=== PATIENT | female | born 1935 | race Caucasian/White ===

== ENCOUNTER 2016-12-07 01:22 | Emergency (ER) | payer OTHER, BC ==
[2016-12-07] MEDS ORDERED: Sodium Chloride 0.9% 1,000 ML PRIMARY IV ONE (01:34)
[2016-12-07] MEDS ORDERED: ASPIRIN 81 MG (BABY) CHEWABLE TABLET PO ONE (01:34)
[2016-12-07] MEDS ORDERED: NORMAL SALINE 10 ML SYRINGE FLUSH IVP PRN (01:34)
--- NOTE | 2016-12-07 01:37 | EKG ---
[address] [place] [address] Measurements Intervals [place] Rate: 87 P: 59 MO: 150 QRS: 35 QRSD: 77 T: 83 QT: 351 QTc: 395 Interpretive Statements SINUS RHYTHM POSSIBLE LEFT ATRIAL ENLARGEMENT [-0.1mV P WAVE IN V1/V2] Compared to ECG 01/27/2016 09:34:21 Sinus bradycardia no longer present Myocardial infarct finding no longer present Electronically Signed On 12-07-16 08:35:09 MDT by Denzel Huerta MD [email or web address]
[2016-12-07 01:46] LABS: BASOPHILS # (AUTO) 0.04 10*3/UL; BASOPHILS % (AUTO) 0.6 % (0-1); EOSINOPHILS # (AUTO) 0.39 10*3/UL; EOSINOPHILS % (AUTO) 5.6 % (0-8); HEMATOCRIT 42.5 % (37.0-47.0); MEAN CORPUSCULAR HEMOGLOBIN 30.6 PG (27-31); MEAN CORPUSCULAR HGB CONC 32.9 g/dL (33-37); MEAN CORPUSCULAR VOLUME 92.8 FL (81-99); MEAN PLATELET VOLUME 10.1 FL (7.4-12.2); MONOCYTES # (AUTO) 0.97 10*3/UL (0.3-0.8); MONOCYTES % (AUTO) 13.9 % (5-15); NEUTROPHILS # (AUTO) 3.47 10*3/UL; NEUTROPHILS % (AUTO) 49.7 % (50-80); RED BLOOD COUNT 4.58 10^6/uL (4.20-5.40)
[2016-12-07 01:47] LABS: PLATELET MORPHOLOGY COMMENT NORMAL MORPHOLOGY (NORM); RBC MORPHOLOGY COMMENT NORMAL MORPHOLOGY (NORM); WBC MORPHOLOGY COMMENT NORMAL MORPHOLOGY (NORM)
[2016-12-07 01:52] LABS: BUN/CREATININE RATIO 26.25 (6-20); CALCIUM 9.3 mg/dL (8.7-10.7); SERUM ALBUMIN 3.8 g/dL (3.5-4.8)
[2016-12-07 01:59] VITALS: RESP 20
[2016-12-07 02:06] LABS: CREATINE KINASE MB 1.75 NG/ML (0.00-5.00); TROPONIN I 0.015 ng/mL (< 0.040)
--- NOTE | 2016-12-07 06:41 | PDOC ---
Palpitations HPI - General Chief Complaint: General Medical Stated Complaint: FEELS LIKE HEART IS RACING Date Seen by Provider: 12/07/16 Time Seen by Provider: 01:25 Source: POSITIVE: Patient, Spouse Exam Limitations: POSITIVE: No limitations Nurse's Notes Reviewed & Considered: Yes Nurse's Notes Reviewed & Considered: Yes - History of Present Illness Initial Comments: The patient is a 81-year-old female who presents to the emergency room with her . 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 Patient states she felt somewhat dizzy at the time. She had no chest pain. No syncope. No GI or symptoms. No focal neurologic symptoms. Patient states that she had surgery for a "brain aneurysm "8 or 9 years ago. History of hypertension for which she takes losartan. She states she is on no other medication. Body Location Affected: REPORTS: Other ("Rapid heart rate") Timing: REPORTS: Abrupt Duration: Other (Less than 30 minutes) Severity: Moderate Quality: REPORTS: Other (Patient denies any pain anywhere) Gone now, lasted (minutes):: 10 Context: REPORTS: Onset w/ Sleep Associated Symptoms: REPORTS: Light-Headedness. DENIES: Fever, Chills, Sweating , Chest Pain, Chest Discomfort, Precordial Chest Pain, Mid-Chest Pain, Neck Pain , Back Pain, Headache, Hurts to Breathe, Shortness of Breath, Anxiety, Tingling in Hands, Tingling in Face, Muscle Spasms in Hands, Muscle Spasms in Feet, Other Modifying Factors: improves with: None Reported Similar Symptoms Previously: No Recently seen/treated/hospitalized: No Any Prior Injuries Related to Current Complaint?: No - Patient Home Medications Home Medications: Home Medications Ascorbic Acid [Vitamin C] 500 mg PO QD 02/28/11 Multivitamin [Daily Vitamin] 1 tab ORAL QD tab 02/28/11 Vitamin D-3 2,000 unit PO QD 02/28/11 [place]-3 Fatty Acids [Fish Oil] 500 cap PO 3XW cap 12/24/12 Losartan [Cozaar] 25 mg PO DAILY 01/27/16 - Patient Allergies Allergies/Adverse Reactions: Allergies Allergy/AdvReac Type Severity Reaction Status Date / Time sumatriptan AdvReac Intermediate sedation Verified 12/07/16 01:28 shrimp Allergy Severe hives and Uncoded 12/07/16 01:28 throat swells shut Past Medical History - heen HEENT History: Denies History Additional HEENT History: SEASONAL ALLERGIES Cardiovascular History: Hypertension Respiratory History: Denies History Gastrointestinal History: Denies History Genitourinary History: Denies History Additional Genitourinary History: ELEVATED BUN Endocrine History: Denies History Musculoskeletal History: Arthritis, Back Pain Prosthesis or Implant: Yes (CLIP IN HEAD, RIGHT SHOULDER) Neurological History: Other (please comment) Additional Neurological History: CEREBRAL ANEURYSM OF RIGHT OPHTHTALMIC ARTERY 2006/ 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 Blood Disorders: Denies History Psychiatric History: Denies History History of Sexually Transmitted Diseases: No Female Reproductive History: Denies History Obstetrical History: Denies History Cancer History: Denies History In Past Year Been Physically Harmed or Verbally Threatened: No History of MDRO: No History of Other Communicable Diseases: No Tobacco Use: Never Smoker Alcohol Use: Rarely Substance Use Type: None Previous Surgical History: Yes Type / Date of Surgery: APPY/ FACE LIFT/ TONSILLETOMY/ CEREBRAL ANEURYSMECTOMY/ OCCIPITAL STIMULATOR AND REMOVAL OF (USED FOR HEADACHES) DEVICE DID NOT WORK/ RIGHT ROTATOR CUFF REPAIR/ BREAST AUGMENTATION Anesthesia Reactions: No Malignant Hyperthermia: No Significant Family History: Hypertension Past Medical History Reviewed: Reviewed - No Changes ROS - Limitations ROS Limitations: No Limitations Constitution: REPORTS: Denies Symptoms Cardiovascular: REPORTS: Heart Racing Respiratory: REPORTS: Denies Resp Symptoms Neurological: REPORTS: Denies Neuro Symptoms Gastrointestinal: REPORTS: Denies GI Symptoms Endocrine: REPORTS: Denies Symptoms Musculoskeletal: REPORTS: Denies MS Symptoms Genitourinary: REPORTS: Denies Symptoms Eyes: REPORTS: Denies Symptoms ENT: REPORTS: Denies Symptoms Skin: REPORTS: Denies Skin Symptoms Lympathic: REPORTS: Denies Lympathic Symptoms Immunologic: POSITIVE: Denies Symptoms Psychiatric: POSITIVE: Denies Psych Symptoms Palpitations Exam - General Appearance General Appearance: REPORTS: Alert, Cooperative, No Acute Distress, No Evidence of Trauma - HEENT HEENT: POSITIVE: Head Inspection Nml, Eyes Inspection Nml, Ears Inspection Nml, Nose Inspection Nml, Oral/Dental Inspect. Nml, Pharynx Inspect. Nml, PERRL, EOMI - Neck Neck: POSITIVE: Normal Inspection - Respiratory Respiratory: REPORTS: No Respiratory Distress, Breath Sounds Normal, Chest Non- Tender - Cardiovascular Cardiovascular: POSITIVE: Regular Rate and Rhythm, Normal PMI, No JVD, No Murmur , No Gallop, No Friction Rub Peripheral Pulses: Radial (R): 2+, Radial (L): 2+ - Abdomen Abdomen: Soft: (All Quadrants), Normal Bowel Sounds: (All Quadrants), Denies Tenderness: (All Quadrants), No Splenomegaly: (All Quadrants), No Hepatomegaly: (All Quadrants), No Guarding: (All Quadrants), No Rebound: (All Quadrants), No Palpable Pulse: (All Quadrants), No Palpabale Mass: (All Quadrants), No Distention: (All Quadrants), No Rigidity: (All Quadrants) - Back Back: POSITIVE: Normal Inspection - Skin Skin: REPORTS: Intact, Normal For Race, Warm, Dry, No Rash - Extremities Extremity: Non-Tender: (All Extremities), Normal ROM: (All Extremities), Normal Inspection: (All Extremities) - Neurological / Psychological Neurological: POSITIVE: Oriented X3, purchasing specialist Normal As Tested, Motor Normal, Sensation Normal, 5, 6 Palpitations Progress - Results Reviewed by me Lab Results Reviewed: Yes Lab Results:: Laboratory Results 12/07/16 Range/Units 01:30 WBC 6.98 (4.8-10.8) 10^3/uL RBC 4.58 (4.20-5.40) 10^6/uL Hgb 14.0 (12.0-16.0) g/dL Hct 42.5 (37.0-47.0) % MCV 92.8 (81-99) FL MCH 30.6 (27-31) PG MCHC 32.9 L (33-37) g/dL RDW Std Deviation 51.9 H (39-50) fL RDW Coeff of [place] 15.7 H (11.5-14.5) % Plt Count 293 (140-350) 10*3/uL MPV 10.1 (7.4-12.2) FL Immature Gran % (Auto) 0.1 (0-5) % Neut % (Auto) 49.7 L (50-80) % Lymph % (Auto) 30.1 (10-50) % [place] % (Auto) 13.9 (5-15) % Eos % (Auto) 5.6 (0-8) % Baso % (Auto) 0.6 (0-1) % Immature Gran # (Auto) 0.01 10*3/UL Neut # (Auto) 3.47 10*3/UL Lymph # (Auto) 2.10 10*3/uL [place] # (Auto) 0.97 H (0.3-0.8) 10*3/UL Eos # (Auto) 0.39 10*3/UL Baso # (Auto) 0.04 10*3/UL WBC Morphology Comment Normal morphology (NORM) Plt Morphology Comment Normal morphology (NORM) RBC Morph Comment Normal morphology (NORM) Sodium 140 (135-145) meq/L Potassium 4.0 (3.8-5.2) meq/L Chloride 103 (98-112) meq/L Carbon Dioxide 25 (23-33) meq/L Anion Gap 12 (5-20) BUN 21 (7-22) mg/dL Creatinine 0.8 (0.50-1.20) mg/dL Estimated GFR (>60 ml/min/1.73m(2)) BUN/Creatinine Ratio 26.25 H (6-20) Glucose 100 (78-110) mg/dL Calculated Osmolality 292.0 (267-292) mOsm/kg Calcium 9.3 (8.7-10.7) mg/dL Total Bilirubin 0.4 (0.3-1.2) mg/dL AST 21 (8-39) IU/L ALT 29 (9-52) IU/L Alkaline Phosphatase 65 (38-126) IU/L CK-MB (CK-2) 1.75 (0.00-5.00) NG/ML Troponin I 0.015 (< 0.040) ng/mL Total Protein 6.4 (6.1-8.0) g/dL Albumin 3.8 (3.5-4.8) g/dL Globulin 2.6 (2.50-4.10) g/dL Albumin/Globulin Ratio 1.40 (1.3-2.0) mg/g TSH 1.86 (0.2700-4.2000) uIU/mL EKG Interpreted/Reviewed By Me:: Yes (normal.) EKG Interpretation:: POSITIVE: Normal Sinus Rhythm, Normal Rate, Normal Intervals, Normal [place], Normal QRS - Patient's Progress Pain Medication Addressed: POSITIVE: Not Applicable School/Work Release Addressed: POSITIVE: Not Applicable Re-examine Time: :35 Re-Examine Comment: Patient remained asymptomatic throughout her stay in the emergency room. She remained in normal sinus rhythm at about 80/m during her stay and there was no ectopy or dysrhythmias. Holter monitor was placed prior to discharge and patient is to follow-up with her primary care provider after Holter monitoring is complete. Status: POSITIVE: Unchanged (patient remained asymptomatic throughout her stay in the emergency room) - Consult Counseled: POSITIVE: Patient, Family, RE: Lab Results, RE: Radiology Results, RE : DX, RE: Need for F/U Patient Care Time - Estimated PCT Patient Care Time (In Minutes): 35 Vital Signs - Recent Vital Signs Vital Signs: Vital Signs (Last 8 hours) Pulse Pulse Resp BP Pulse Ox 12/07/16 01:34 84 12/07/16 01:25 86 20 179/76 95 - VS Reviewed Vital Signs Reviewed: Yes Discharge Clinical Impression: Rapid palpitations Discharge Disposition: Discharged to Home Condition: Stable Patient Instructions Given at Discharge: Palpitations (ED) Additional Instructions: I am not completely sure why you had the sensation of a rapid heart rate tonight. Your cardiac rhythm has been completely normal while you are monitored in the emergency room. Blood tests are normal and show no evidence of heart damage. There are several conditions, however, that can cause intermittent rapid heart rate. In an effort to try to uncover these, I ordered a 48 hour Holter monitor, which will monitor your heart rate for 2 days. 3 or 4 days after you have completed this test, please follow-up with your primary care provider, Dr. Anguiano, and she will review the results with you. Please return to the emergency room anytime if your symptoms recur or if your condition worsens in any way. Follow Up With: ELBA ANGUIANO [Primary Care Provider] - (Instructions as above. Follow-up with Dr. Anguiano after your Holter monitor test. Return here anytime if condition worsens in any way.)
--- NOTE | 2016-12-09 13:42 | HOLTER ---
[facility] [place] [email or web address]
== END 2016-12-07 02:55 | disposition home or self-care (01) ==
LOC: ER 01:22
DX: R00.2 Palpitations (principal); R42 Dizziness and giddiness; I10 Essential (primary) hypertension
CPT/HCPCS: 80053; 82553; 84443; 84484; 85025; 93005; 93010; 93225; 93226; 93227; 99283; J7030

== ENCOUNTER → 2016-12-14 | Outpatient (CLI) | payer OTHER, BC | LOC: MMPC 09:00 | PROVIDERS: ATTEND Nurse Practitioner Family | DX: R42 Dizziness and giddiness (principal); R00.2 Palpitations | CPT/HCPCS: 99213; G0463 ==

== ENCOUNTER → 2016-12-16 | Outpatient (CLI) | payer OTHER, BC ==
--- NOTE | 2016-12-16 10:20 | DI ---
DUPLEX COLOR DOPPLER CAROTID ULTRASOUND, 12/16/2016 8:10 AM: Clinical History: Dizziness. Previous Exam: 03/23/2007. Technique: 2D real time imaging is supplemented with duplex color doppler ultrasound imaging. RIGHT CAROTID ARTERY: 2D real time imaging of the right carotid system shows mild intimal thickening of the common carotid artery and carotid bulb. There is a small calcified plaque at the origin of the right internal caroti d artery. Peak systolic velocities through the right common carotid, the external carotid, and the in ternal carotid are 113 cm/s, 119 cm/s, and 105 cm/s, respectively. All values correspond to diameter stenoses of 0-49%. LEFT CAROTID ARTERY: 2D real time imaging of the left carotid system shows mild intimal thickening of the left common rios tid artery with some small noncalcified plaques in the carotid bulb. Peak systolic velocities through the left common carotid, the external carotid, and the internal carotid are 111 cm/s, 115 cm/s, and 92 cm/s, respectively. All values correspond to diameter stenoses of 0-49%. VERTEBRAL ARTERIES: There is antegrade flow through both vertebral arteries Cardiac rhythm is regular. Peak systolic [place] through the visualized portions of the right and left vertebral arteries are 65 cm/s and 45 cm /s, respectively. Both values correspond to diameter stenoses of 0-49%. Readin. There is no hemodynamically significant stenosis of either carotid system. 2. There is antegrade flow through both vertebral arteries in the cardiac rhythm is regular.
== END ==
LOC: US 08:07
PROVIDERS: ATTEND Nurse Practitioner Family
DX: R00.2 Palpitations (principal); R42 Dizziness and giddiness; I51.7 Cardiomegaly
CPT/HCPCS: 93306; 93880

== ENCOUNTER → 2017-01-30 | Outpatient (CLI) | payer OTHER, BC ==
--- NOTE | 2017-01-30 15:34 | DI ---
LEFT KNEE, 01/30/2017 2:54 PM: Clinical History: Left knee pain. Previous Exam: 12/25/2012 4 views are submitted. The AP and tunnel projections are weight bearing views. There is no acute soft tissue, osseous, or joint abnormality. There is a mild genu valgum deformity with severe joint space narrowing of the lateral compartment and moderately severe arthritic change of the patellofemoral co mpartment. 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 Readin. 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 2. Chondrocalcinosis.
== END ==
LOC: ORTHO 15:06
PROVIDERS: ATTEND Orthopaedic Surgery
DX: M25.562 Pain in left knee (principal); M17.12 Unilateral primary osteoarthritis, left knee; M11.262 Other chondrocalcinosis, left knee
CPT/HCPCS: 20610; 73564; 99203